=== PATIENT | female | born 1995 | race Caucasian/White ===

== ENCOUNTER 2016-06-21 13:50 | Emergency (ER) | payer OTHER ==
[2016-06-21] MEDS ORDERED: SODIUM CHLORIDE 0.9% 1,000 ML IV STA ×2 (15:05→15:06)
[2016-06-21] MEDS ORDERED: METOCLOPRAMIDE 5 MG/ML 2 ML VIAL IVP STA (15:06)
--- NOTE | 2016-06-21 15:10 | ED ---
General Adult HPI - General Chief complaint: Nausea/Vomiting/Diarrhea Stated complaint: Vomiting/ 20 weeks Time Seen by Provider: 06/21/16 14:45 Source: patient Mode of arrival: wheelchair Limitations: no limitations - History of Present Illness Initial comments: Patient is a 21-year-old female at 20 weeks presenting with nausea/ vomiting for the past 24 hours. Patient states she vomited 5-6 times today. Nonbloody. Patient denies taking any antiemetics. Patient denies any suspicious food, family members are sick or travel. 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 Patient followed up with labor and delivery who assessed the baby and said that the baby was okay. Patient was deferred to the emergency room for further management care. Patient admits to cramping as well as back pain for which was assessed by labor and delivery. - Related Data Home Medications Medication Instructions Recorded Confirmed Pnv with Ca,No.72/Iron/FA 1 tab PO DAILY 06/21/16 06/21/16 [ Plus Tablet] Allergies Allergy/AdvReac Type Severity Reaction Status Date / Time seafood AdvReac Unknown Uncoded 06/21/16 14:09 Review of Systems ROS Statement: Those systems with pertinent positive or pertinent negative responses have been documented in the HPI. Constitutional: No fever and no chills. HENT: No congestion, no rhinorrhea and no sore throat. Eyes: No discharge and no redness. Respiratory: No cough and no shortness of breath. Cardiovascular: No chest pain and no palpitations. Gastrointestinal: +nausea, +vomiting, +abdominal pain and no diarrhea. Genitourinary: No dysuria and no hematuria. Musculoskeletal: +back pain and no arthralgias. Skin: No pallor and no rash. Neurological: No dizziness and No headaches. ROS Other: All systems not noted in ROS Statement are negative. 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 No distress. Head: Normocephalic and atraumatic. Eyes: Conjunctivae and EOM are normal. Right eye exhibits no discharge. Left eye exhibits no discharge. No scleral icterus. Neck: Normal range of motion. Neck supple. Cardiovascular: Normal rate and regular rhythm. No murmur heard. Pulmonary/Chest: Effort normal and breath sounds normal. No respiratory distress. No wheezes. Abdominal: uterus to the umbilicus. Soft. Mild diffuse tenderness throughout. There is no rebound and no guarding. Musculoskeletal: Normal range of motion. No edema or tenderness. Neurological: Patient alert and oriented to person, place, and time. Skin: Skin is warm and dry. Not diaphoretic. Nursing notes and vitals reviewed. Limitations: no limitations Course Vital Signs 06/21/16 06/21/16 06/21/16 14:06 16:59 18:00 Temperature 97.4 F L Pulse Rate 83 90 87 Respiratory 16 18 18 Rate Blood Pressure 115/56 128/57 117/62 O2 Sat by Pulse 98 98 100 Oximetry - Reevaluation(s) Reevaluation #1: 06/21/16 18:35 Patient doing better on reevaluation no further nausea vomiting. Patient tolerated oral challenge. Medical Decision Making - Medical Decision Making Patient's 21-year-old at 20 weeks presenting with nausea vomiting. Patient was given 2 L normal saline as well as Reglan which improved his symptoms. Patient's blood work is unremarkable except for magnesium 1.5 which was replaced orally. Discussed care with DIMPLING MACHINE OPERATOR who agrees that patient was assessed on labor and delivery and can be discharged from their standpoint as well.Prior to discharge, patient was resting comfortably in bed. Course of stay improved. Denies pain. Discussed physical exam and diagnostic tests with patient. Questions answered and patient is agreeable to discharge with close follow up with Primary Care Physician. Instructed to return to Emergency Department if symptoms worsen. - Lab Data Result diagrams: 06/21/16 15:52 06/21/16 15:52 Lab Results 06/21/16 06/21/16 06/21/16 Range/Units 15:52 15:52 16:44 WBC 15.6 H (3.8-10.6) k/uL RBC 4.11 (3.80-5.40) m/uL Hgb 12.0 (11.4-16.0) gm/dL Hct 36.7 (34.0-46.0) % MCV 89.4 (80.0-100.0) fL MCH 29.2 (25.0-35.0) pg MCHC 32.7 (31.0-37.0) g/dL RDW 13.7 (11.5-15.5) % Plt Count 229 (150-450) k/uL Neutrophils % 94 % Lymphocytes % 3 % Monocytes % 3 % Eosinophils % 0 % Basophils % 0 % Neutrophils # 14.7 H (1.3-7.7) k/uL Lymphocytes # 0.4 L (1.0-4.8) k/uL Monocytes # 0.4 (0-1.0) k/uL Eosinophils # 0.0 (0-0.7) k/uL Basophils # 0.0 (0-0.2) k/uL Sodium 135 L (137-145) mmol/L Potassium 3.7 (3.5-5.1) mmol/L Chloride 104 (98-107) mmol/L Carbon Dioxide 21 L (22-30) mmol/L Anion Gap 10 mmol/L BUN 11 (7-17) mg/dL Creatinine 0.40 L (0.52-1.04) mg/dL Est GFR (MDRD) Af Amer >60 (>60 ml/min/1.73 sqM) Est GFR (MDRD) Non-Af >60 (>60 ml/min/1.73 sqM) Glucose 62 L (74-99) mg/dL Calcium 9.1 (8.4-10.2) mg/dL Magnesium 1.5 L (1.6-2.3) mg/dL Total Bilirubin 1.1 (0.2-1.3) mg/dL AST 17 (14-36) U/L ALT 27 (9-52) U/L Lipase 34 (23-300) U/L HCG, Quant 62844.2 mIU/mL Urine Color Yellow Urine Appearance Cloudy H (Clear) Urine pH 6.0 (5.0-8.0) Ur Specific [place] 1.018 (1.001-1.035) Urine Protein Trace H (Negative) Urine Glucose (UA) Negative (Negative) Urine Ketones 4+ H (Negative) Urine Blood Moderate H (Negative) Urine Nitrate Negative (Negative) Urine Bilirubin Negative (Negative) Urine Urobilinogen <2.0 (<2.0) mg/dL Ur Leukocyte Esterase Moderate H (Negative) Urine RBC 18 H (0-5) /hpf Urine WBC 7 H (0-5) /hpf Ur Squamous Epith Cells 21 H (0-4) /hpf Urine Bacteria Rare H (None) /hpf Urine Mucus Few H (None) /hpf Disposition Clinical Impression: Nausea & vomiting, Disposition: HOME SELF-CARE Condition: Good Instructions: Acute Nausea and Vomiting (ED) Referrals: None,Stated [Primary Care Provider] - 1-2 days Dina Beth DO [Doctor of Osteopathic Medicine] - 1-2 days
[2016-06-21 16:28] LABS: Basophils % (A) 0 %; CH 29.7; CHCM 33.4; Eosinophils % (A) 0 %; HCT 36.7 % (34.0-46.0); HDW 2.21; Luc # (Auto) 0.07; Luc % (Auto) 0; Lymphocytes # (A) 0.4 k/uL (1.0-4.8); Lymphocytes % (A) 3 %; MCH 29.2 pg (25.0-35.0); MCHC 32.7 g/dL (31.0-37.0); MCV 89.4 fL (80.0-100.0); Mean Platelet Volume 7.8; Monocytes # (A) 0.4 k/uL (0-1.0); Monocytes % (A) 3 %; Neutrophils # (A) 14.7 k/uL (1.3-7.7); Neutrophils % (A) 94 %; RBC 4.11 m/uL (3.80-5.40); RDW 13.7 % (11.5-15.5); WBC 15.6 k/uL (3.8-10.6); WBC (Perox) 15.49
[2016-06-21 16:41] LABS: ALT 27 U/L (9-52); AST 17 U/L (14-36); Anion Gap 10 mmol/L; Blood Urea Nitrogen 11 mg/dL (7-17); Calcium 9.1 mg/dL (8.4-10.2); Carbon Dioxide 21 mmol/L (22-30); Chloride 104 mmol/L (98-107); Glucose 62 mg/dL (74-99); Magnesium 1.5 mg/dL (1.6-2.3); Non-African American GFR(MDRD) >60 (>60 ml/min/1.73 sqM); Potassium 3.7 mmol/L (3.5-5.1); Sodium 135 mmol/L (137-145); Total Bilirubin 1.1 mg/dL (0.2-1.3)
[2016-06-21 16:56] LABS: HCG,Quantitative Serum 10429.2 mIU/mL
[2016-06-21 16:58] LABS: Appearance,Urine Cloudy (Clear); Bacteria,Urine Rare /hpf; Bilirubin,Urine Negative (Negative); Glucose,Urine (UA) Negative (Negative); Ketones,Urine 4+ (Negative); Leukocyte Esterase,Urine Moderate (Negative); Mucus,Urine Few /hpf; Nitrite,Urine Negative (Negative); Particle Count 11725; Protein,Urine Trace (Negative); RBC,Urine 18 /hpf (0-5); Specific Gravity,Urine 1.018 (1.001-1.035); Squamous Epithelial Cell,Urine 21 /hpf (0-4); UA Billing (MACRO vs. MICRO) MICRO; Urobilinogen,Urine <2.0 mg/dL (<2.0); WBC,Urine 7 /hpf (0-5)
[2016-06-21 17:00] VITALS: RESP 18
[2016-06-21] MEDS ORDERED: MAGNESIUM OXIDE 400 MG TAB PO STA (17:42)
[2016-06-21 18:43] VITALS: BP 115/58; PULSE 80; TEMP 98.4
== END 2016-06-21 18:43 | disposition home or self-care (01) ==
LOC: EC 13:50
DX: O21.0 Mild hyperemesis gravidarum (principal); Z3A.20 20 weeks gestation of pregnancy; Z91.013 Allergy to seafood
CPT/HCPCS: 36415; 80048; 82247; 83690; 83735; 84450; 84460; 85025; 81001; 84702; 87086; 96374; 96361; 99284; J2765; 99213

== ENCOUNTER → 2016-08-21 | Outpatient (CLI) | payer OTHER ==
[2016-08-21 11:45] LABS: CH 29.2; CHCM 32.2; HCT 33.7 % (34.0-46.0); HDW 2.38; HGB 10.9 gm/dL (11.4-16.0); MCH 29.5 pg (25.0-35.0); MCHC 32.5 g/dL (31.0-37.0); MCV 90.9 fL (80.0-100.0); Mean Platelet Volume 7.8; RBC 3.71 m/uL (3.80-5.40); RDW 13.6 % (11.5-15.5); WBC 14.2 k/uL (3.8-10.6)
== END | disposition home or self-care (01) ==
LOC: LABWHC1 09:19
PROVIDERS: ATTEND Obstetrics & Gynecology
DX: Z34.02 Encounter for supervision of normal first pregnancy, second trimester (principal)
CPT/HCPCS: 36415; 82950; 85027

== ENCOUNTER 2016-10-22 19:49 | Outpatient (CLI) | payer OTHER ==
[2016-10-22 20:03] VITALS: BP 124/65; PULSE 90; RESP 16; TEMP 97.1
--- NOTE | 2016-10-22 21:32 | P.MSEPDOC ---
Presenting Problems - Arrival Data Date of Arrival on Unit: 10/22/16 Time of Arrival on Unit: 19:49 Mode of Transport: Wheelchair - Complaint OB-Reason for Admission/Chief Complaint: Rule Out SROM Comment: Patient reports possible leaking, states she thinks she lost her mucus yesterday so she is having some "watery discharge" Medical History - Information : 1 Para: 0 Term: 0 : 0 Abortions: Spontaneous or Elective: 0 Number of Living Children: 0 - Gestational Age Expected Date of Delivery: 11/06/16 Gestational Age by LIAM (wks/days): 37 Weeks and 6 Days Review of Systems - Review of Systems Constitutional: No problems Breast: No problems ENT: No problems Cardiovascular: No problems Respiratory: No problems Gastrointestinal: No problems Genitourinary: No problems Musculoskeletal: No problems Neurological: No problems Skin: No problems Vital Signs - Temperature Temperature: 97.1 F Temperature Source: Temporal Artery Scan - Pulse Pulse Oximetery Pulse Rate: 90 Pulse Assessment Method: Pulse Oximetry - Respirations Respiratory Rate: 16 Oxygen Delivery Method: Room Air - Blood Pressure Sitting Blood Pressure: 124/65 Blood Pressure Mean: 84 Blood Pressure Source: Automatic Cuff Medical Screen Scoring (Pre) - Cervical Exam Dilation: 1-3 cm = 1 - Maternal Vital Signs Maternal Temperature: N/A Maternal Blood Pressure: N/A Signs of Preeclampsia: N/A Maternal Respirations: N/A - Maternal Trauma Maternal Trauma: N/A - Assessment Heart Rate - NICHD Category: Category I (Normal) = 0 NST: Reactive Position: N/A Station: N/A - Total Score Total Score (Pre): 1 Medical Screen Scoring (Post) - Cervical Exam Dilation: 1-3 cm = 1 Effacement: More than 50% = 2 Membranes: Intact - Uterine Contractions Frequency: N/A - Assessment Heart Rate: 135 Heart Rate - NICHD Category: Category I (Normal) = 0 - Total Score Total Score (Post): 3 - Post Treatment Level of Risk Post Treatment Level of Risk: Low (0-5) Physician Notification (Post) - Physician Notified Physician Notified Date: 10/22/16 Physician Notified Time: 20:48 New Order Received: Yes Disposition - Disposition OB Disposition: Discharge to home Discharge Date: 10/22/16 Discharge Time: 20:54 I agree with the RN Medical Screening Exam: Yes Risk & Benefit of care provided described in d/c instruction: Yes Diagnosis: FALSE LABOR AT OR AFTER 37 COMPLETED WEEKS OF GESTATION
== END 2016-10-22 20:54 | disposition home or self-care (01) ==
LOC: FBPOP 19:49
PROVIDERS: ATTEND Obstetrics & Gynecology
DX: O47.1 False labor at or after 37 completed weeks of gestation (principal)
CPT/HCPCS: 59025; 84112; G0463; 99213

== ENCOUNTER 2016-10-24 20:19 | Outpatient (CLI) | payer OTHER ==
[2016-10-24 20:57] VITALS: BP 117/57; PULSE 91; RESP 18; TEMP 97.3
--- NOTE | 2016-10-25 08:29 | P.MSEPDOC ---
Presenting Problems - Arrival Data Date of Arrival on Unit: 10/24/16 Time of Arrival on Unit: 20:19 Mode of Transport: Wheelchair - Complaint OB-Reason for Admission/Chief Complaint: Possible Onset of Labor Medical History - Information : 1 Para: 0 Term: 0 : 0 Abortions: Spontaneous or Elective: 0 Number of Living Children: 0 - Gestational Age Expected Date of Delivery: 11/06/16 Gestational Age by LIAM (wks/days): 38 Weeks and 2 Days - History Complications: GBS+ Review of Systems - Review of Systems Constitutional: No problems Breast: No problems ENT: No problems Cardiovascular: No problems Respiratory: No problems Gastrointestinal: No problems Genitourinary: No problems Musculoskeletal: No problems Neurological: No problems Skin: No problems Vital Signs - Temperature Temperature: 97.3 F Temperature Source: Temporal Artery Scan - Pulse Right Pulse Rate: 91 Pulse Assessment Method: Pulse Oximetry - Respirations Respiratory Rate: 18 Oxygen Delivery Method: Room Air O2 Sat by Pulse Oximetry: 98 - Blood Pressure Right Arm Blood Pressure: 117/57 Blood Pressure Mean: 77 Blood Pressure Source: Automatic Cuff Medical Screen Scoring (Pre) - Cervical Exam Dilation: 1-3 cm = 1 Effacement: More than 50% = 2 Membranes: Intact - Uterine Contractions Frequency: > or = 36 weeks =2 Duration: > 40 seconds = 2 Intensity: N/A - Maternal Vital Signs Maternal Temperature: N/A Maternal Blood Pressure: N/A Signs of Preeclampsia: N/A Maternal Respirations: N/A - Maternal Trauma Maternal Trauma: N/A - Assessment Baseline FHR: 145 Heart Rate - NICHD Category: Category I (Normal) = 0 NST: Reactive Position: N/A Station: N/A - Total Score Total Score (Pre): 7 - Level of Risk Level of Risk: Medium (6-9) Medical Screen Scoring (Post) - Cervical Exam Dilation: 1-3 cm = 1 Effacement: More than 50% = 2 Membranes: Intact - Uterine Contractions Frequency: > or = 36 weeks =2 Duration: > 40 seconds = 2 - Maternal Vital Signs Maternal Temperature: N/A Signs of Preeclampsia: N/A Maternal Respirations: N/A - Maternal Trauma Maternal Trauma: N/A - Assessment Heart Rate - NICHD Category: Category I (Normal) = 0 NST: Reactive - Total Score Total Score (Post): 7 - Post Treatment Level of Risk Post Treatment Level of Risk: Medium (6-9) Physician Notification (Post) - Physician Notified Physician Notified Date: 10/24/16 Physician Notified Time: 22:02 Physician/Practitioner Notified:: Dr Moss Spoke With: Dr Moss New Order Received: Yes (discharge) Disposition - Disposition OB Disposition: Discharge to home, Written follow up instructions reviewed Discharge Date: 10/24/16 Discharge Time: 22:10 I agree with the RN Medical Screening Exam: Yes Risk & Benefit of care provided described in d/c instruction: Yes Diagnosis: FALSE LABOR AT OR AFTER 37 COMPLETED WEEKS OF GESTATION
== END 2016-10-24 22:10 | disposition home or self-care (01) ==
LOC: FBPOP 20:19
PROVIDERS: ATTEND Obstetrics & Gynecology
DX: O47.1 False labor at or after 37 completed weeks of gestation (principal); Z3A.38 38 weeks gestation of pregnancy
CPT/HCPCS: 59025; G0463; 99213

== ENCOUNTER 2016-10-25 04:42 | Inpatient (IN) | payer OTHER ==
[2016-10-25] MEDS ORDERED: LIDOCAINE 1% (PF) 10 MG/ML (30 ML SDV) SQ PRN (08:11)
[2016-10-25] MEDS ORDERED: OXYTOCIN 10 UNIT/ML 1 ML VIAL IM PRN (08:11)
[2016-10-25] MEDS ORDERED: TERBUTALINE 1 MG/ML VIAL SQ PRN (08:11)
[2016-10-25] MEDS ORDERED: CARBOPROST TROMETHAMINE 250 MCG/ML 1 ML AMP IM PRN (08:11)
[2016-10-25] MEDS ORDERED: AMPICILLIN 2,000 MG in SODIUM CHLORIDE 0.9% 100 ML IVPB STA (08:11)
[2016-10-25] MEDS ORDERED: METHYLERGONOVINE 0.2 MG/ML 1 ML AMP IM PRN (08:11)
[2016-10-25] MEDS ORDERED: BUTORPHANOL 1 MG/ML 1 ML VIAL IV PRN (08:13)
[2016-10-25] MEDS: LACTATED RINGERS 1,000 ML IV SCH ×2 (08:25→10:44)
[2016-10-25 08:37] LABS: Basophils % (A) 0 %; CH 28.5; CHCM 32.7; Eosinophils % (A) 0 %; HCT 35.2 % (34.0-46.0); HDW 2.51; HGB 11.7 gm/dL (11.4-16.0); Luc # (Auto) 0.22; Luc % (Auto) 1; Lymphocytes # (A) 1.5 k/uL (1.0-4.8); Lymphocytes % (A) 8 %; MCH 29.1 pg (25.0-35.0); MCHC 33.2 g/dL (31.0-37.0); MCV 87.6 fL (80.0-100.0); Mean Platelet Volume 9.1; Monocytes # (A) 0.7 k/uL (0-1.0); Monocytes % (A) 4 %; Neutrophils # (A) 16.7 k/uL (1.3-7.7); Neutrophils % (A) 87 %; RBC 4.02 m/uL (3.80-5.40); RDW 14.5 % (11.5-15.5); WBC 19.2 k/uL (3.8-10.6); WBC (Perox) 19.89
[2016-10-25 09:00] VITALS: BMI 27.3
[2016-10-25] MEDS: AMPICILLIN 1,000 MG in SODIUM CHLORIDE 0.9% 50 ML IVPB SCH (12:56)
[2016-10-25] MEDS ORDERED: BENZOCAINE SPRAY 57GM TOPICAL PRN (16:27)
[2016-10-25] MEDS ORDERED: ACETAMINOPHEN TAB 325 MG TAB PO PRN (16:27)
[2016-10-25] MEDS ORDERED: LANOLIN CREAM 5 GM TUBE TOPICAL PRN (16:27)
[2016-10-25] MEDS ORDERED: diphenhydrAMINE 50 MG CAP PO PRN (16:27)
[2016-10-25] MEDS ORDERED: HYDROCORTISONE 2.5% RECTAL CREAM 30 GM TUBE RECTAL PRN (16:27)
[2016-10-25] MEDS ORDERED: Acetaminophen-Codeine 300-30mg TAB PO PRN (16:27)
[2016-10-25] MEDS ORDERED: WITCH HAZEL 1 EACH MED..PAD TOPICAL PRN (16:27)
[2016-10-25] MEDS ORDERED: diphenhydrAMINE 25 MG CAP PO PRN (16:27)
[2016-10-25] MEDS ORDERED: IBUPROFEN 600 MG TAB PO PRN (16:27)
[2016-10-25] MEDS ORDERED: SIMETHICONE 80 MG CHEWABLE PO PRN (16:27)
[2016-10-25] MEDS ORDERED: ZOLPIDEM 5 MG TAB PO PRN (16:27)
[2016-10-25] MEDS ORDERED: OXYTOCIN 20 UNITS/1000 ML NS 1,000 ML IV SCH (16:30)
--- NOTE | 2016-10-25 16:48 | P.HPOB ---
History of Present Illness H&P Date: 10/25/16 Chief Complaint: labor 21 year old presents at 38 weeks and 2 days in labor. Her cervix changed in triage from 3 cm dilated to 4 cm dilated, 80% effaced, -2 station. She is vick every 4-5 minutes. heart tones are 140-145 with moderate variability and reactive. Review of Systems All systems: negative Constitutional: Denies chills, Denies fever Eyes: denies blurred vision, denies pain Ears, nose, mouth and throat: Denies headache, Denies sore throat Cardiovascular: Denies chest pain, Denies shortness of breath Respiratory: Denies cough Gastrointestinal: Denies abdominal pain, Denies diarrhea, Denies nausea, Denies vomiting Genitourinary: Denies dysuria, Denies hematuria Musculoskeletal: Denies myalgias Integumentary: Denies pruritus, Denies rash Neurological: Denies numbness, Denies weakness Psychiatric: Denies anxiety, Denies depression Endocrine: Denies fatigue, Denies weight change Past Medical History Additional Past Medical History / Comment(s): neuro cardiogenic syncope. Obstetric history: This patient's first and she's had care with me since first trimester. Blood type is O+, antibodies negative, rubella immune, hepatitis B negative, GBS positive, HIV nonreactive, RPR nonreactive. History of Any Multi-Drug Resistant Organisms: None Reported Past Surgical History: No Surgical Hx Reported Past Psychological History: No Psychological Hx Reported Smoking Status: Never smoker Past Alcohol Use History: None Reported Past Drug Use History: None Reported - Past Family History Mother Family Medical History: No Reported History Medications and Allergies Home Medications Medication Instructions Recorded Confirmed Type Pnv,Calcium 72/Iron/Folic Acid 1 tab PO DAILY 06/21/16 10/25/16 History [ Plus Tablet] Albuterol Sulfate [Ventolin HFA] 1 - 2 puff INHALATION Q6H PRN 10/24/16 History Allergies Allergy/AdvReac Type Severity Reaction Status Date / Time seafood Allergy Unknown Uncoded 10/25/16 04:45 Exam Osteopathic Statement: *. No significant issues noted on an osteopathic structural exam other than those noted in the History and Physical/Consult. - Vital Signs Vital signs: Vital Signs Temp Pulse Resp BP Pulse Ox 10/25/16 15:45 101.6 F H 122 H 16 133/59 10/25/16 08:11 97.2 F L 68 16 120/72 10/25/16 04:45 97.6 F 78 16 127/65 98 Intake and Output 10/25/16 10/25/16 10/25/16 06:59 14:59 22:59 Other: # Voids 1 Weight 65.771 kg 65.771 kg Patient Weight 10/26/16 06:59 Weight 65.771 kg Heart: Regular rate and rhythm Lungs: Clear to auscultation bilaterally Abdomen: Soft, nontender Extremities: Negative Homans sign Results Result Diagrams: 10/25/16 08:10 Abnormal Lab Results - Last 24 Hours (Table) 10/25/16 Range/Units 08:10 WBC 19.2 H (3.8-10.6) k/uL Neutrophils # 16.7 H (1.3-7.7) k/uL Assessment and Plan (1) Normal labor Status: Acute Plan: 1. Admit to labor and delivery 2. Expectant management 3. Anticipate normal vaginal delivery
--- NOTE | 2016-10-25 16:55 | P.PROBDLV ---
Vaginal Delivery Note - . Vaginal Delivery Note: 21-year-old presents at 38 weeks and 2 days in labor. Her cervix changed in triage from 3 cm to 4 cm, 80% effaced, -2 station. heart tones 140- 145 with moderate variability and reactive. Amniotomy was performed at 9:30 AM and clear fluid noted. She did have a dose of antibiotics and by that time. When she was 5 cm due to get an epidural and was comfortable. She progressed to complete at 1500, pushed, delivered a viable female infant over Episiotomy under epidural anesthesia at 1537. Head delivered OA, nuchal cord 1 easily reduced, anterior shoulder delivered gentle downward traction followed by posterior shoulder and rest of body. Nose and mouth bulb suctioned, cord clamped and cut, placed on mother's abdomen. Apgars 9, 9, weight 6 lbs. 4 oz. Placenta delivered spontaneously, intact with three-vessel cord at 1540. Vagina, cervix, and perineum were inspected. Secondary midline episiotomy was repaired with 2-0, and 3-0 Vicryl. Estimated blood loss 200 mL. Mother and baby in stable condition.
[2016-10-25] MEDS: SENNOSIDES-DOCUSATE SODIUM 1 EACH TAB PO SCH (23:36)
[2016-10-26] MEDS: AMPICILLIN 1,000 MG in SODIUM CHLORIDE 0.9% 50 ML IVPB SCH (02:06)
[2016-10-26] MEDS: Acetaminophen-Codeine 300-30mg TAB PO PRN ×2 (04:58→11:15)
--- NOTE | 2016-10-26 06:33 | P.DS ---
Providers Date of admission: 10/25/16 07:58 Expected date of discharge: 10/26/16 Attending physician: Dina Beth Primary care physician: Stated None - Discharge Diagnosis(es) (1) Normal labor Current Visit: Yes Status: Resolved (2) Normal vaginal delivery Current Visit: Yes Status: Acute Hospital Course: Patient presented in active labor. She underwent a normal vaginal delivery. Her course was uncomplicated. She'll be discharged home day #1 in stable condition to follow-up with me in 6 weeks. Plan - Discharge Summary New Discharge Prescriptions: Acetaminophen-Codeine 300-30mg [Tylenol w/codeine #3] 2 each PO Q6H PRN #30 tab PRN Reason: Moderate To Severe Pain Ibuprofen [Motrin] 600 mg PO Q6HR PRN #30 tab PRN Reason: Mild Pain Or Fever >= 100.5 Discharge Medication List Pnv,Calcium 72/Iron/Folic Acid [ Plus Tablet] 1 tab PO DAILY 06/21/16 [ History] Albuterol Sulfate [Ventolin HFA] 1 - 2 puff INHALATION Q6H PRN 10/24/16 [History ] Acetaminophen-Codeine 300-30mg [Tylenol w/codeine #3] 2 each PO Q6H PRN #30 tab 10/26/16 [Rx] Ibuprofen [Motrin] 600 mg PO Q6HR PRN #30 tab 10/26/16 [Rx] Follow up Appointment(s)/Referral(s): Dina Beth DO [Doctor of Osteopathic Medicine] - 6 Weeks
[2016-10-26] MEDS: SENNOSIDES-DOCUSATE SODIUM 1 EACH TAB PO SCH (09:35)
[2016-10-26] MEDS ORDERED: SODIUM CHLORIDE 0.9% 100 ML BAG ONE (10:49)
[2016-10-26] MEDS ORDERED: BUPIVACAINE (PF) 0.25% 30 ML VIAL ONE (10:49)
[2016-10-26] MEDS ORDERED: fentaNYL (PF) 50 MCG/ML 5 ML AMP ONE (10:49)
[2016-10-26 11:35] VITALS: BP 113/68; PULSE 116; RESP 48; TEMP 97.5
== END 2016-10-26 17:15 | disposition home or self-care (01) | DRG 775 ==
LOC: FBPOP 04:42 → 4FBP 07:58
PROVIDERS: ADMIT Obstetrics & Gynecology; ATTEND Obstetrics & Gynecology
PROC: 10E0XZZ Delivery of Products of Conception, External Approach (ICD-10-PCS; principal; 2016-10-25)
PROC: 10907ZC Drainage of Amniotic Fluid, Therapeutic from Products of Conception, Via Natural or Artificial Opening (ICD-10-PCS; 2016-10-25)
PROC: 0W8NXZZ Division of Female Perineum, External Approach (ICD-10-PCS; 2016-10-25)
PROC: 3E0S3NZ Introduction of Analgesics, Hypnotics, Sedatives into Epidural Space, Percutaneous Approach (ICD-10-PCS; 2016-10-25)
DX: O99.824 Streptococcus B carrier state complicating childbirth (principal); O69.81X0 Labor and delivery complicated by cord around neck, without compression, not applicable or unspecified; Z3A.38 38 weeks gestation of pregnancy; Z37.0 Single live birth; Z91.013 Allergy to seafood; Z86.79 Personal history of other diseases of the circulatory system
CPT/HCPCS: 59025; 85025; 88307; 99213

== ENCOUNTER → 2018-01-02 | Outpatient (CLI) | payer OTHER ==
[2018-01-02 09:30] VITALS: BP 96/63; PULSE 75; TEMP 97.6; BMI 23.0
--- NOTE | 2018-01-02 10:30 | P.GSHP ---
History of Present Illness H&P Date: 01/02/18 Patient is a 22 year old black female with a complaint of right breast swelling in 2014. At that time she was noted to have dense breast and an ultrasound was done which was benign. She was told this was hormonal. She that got and the fullness in her breast became more apparent however her child is now 14 months old and the breast continue to be fall. She did not breast feed. She is at this time having discharge from the right nipple. No discharge from the left nipple. The discharge is clear in nature, spontaneous, and she notices it more in the evening. She notices this more when she does not wear bra and has no support for her breast. Her breasts are heavy bilaterally and tender to palpation bilaterally. The patient had recent cultures obtained from the breast which revealed normal carol. She additionally had a prolactin level drawn which was 27.11 which is high normal. Her periods are irregular. Her breasts are always tender and do not seem to be related to her menstrual cycle The patient drinks coffee in the am, no pop. No chololate. No smoking, no second hand smoke. Family history: Negative Menarche: 13 Pregnancies: 1, 1 live at 21, breast fed negative control pills: implant in her arm: This was present when she had a swollen right breast, patient had a Depo shot hormones: Negative Social history: Smoking: Negative Alcohol: Negative Drugs: Negative Past surgical history: Negative Past medical history: 1. Neurogenic syncope - Constitutional Constitutional: Denies chills, Denies fever - EENT Eyes: denies blurred vision, denies pain Ears: deny: decreased hearing, tinnitus Ears, nose, mouth and throat: Denies headache, Denies sore throat - Breasts Breasts: bilateral: as per HPI - Cardiovascular Comment: Neurogenic syncope - Respiratory Respiratory: Denies cough, Denies 7 - Gastrointestinal Gastrointestinal: Denies abdominal pain, Denies diarrhea, Denies nausea, Denies vomiting - Genitourinary (Female) Comment: Irregular periods - Menstruation Menstruation: Reports as per HPI - Musculoskeletal Musculoskeletal: Denies myalgias - Integumentary Integumentary: Denies pruritus, Denies rash - Neurological Comment: Neurogenic syncope - Psychiatric Psychiatric: Denies anxiety, Denies depression - Endocrine Endocrine: Denies fatigue, Denies weight change - Hematologic/Lymphatic Comment: none - Allergic/Immunologic Comment: sea food Allergic/Immunologic: Reports seasonal allergies Past Medical History Additional Past Medical History / Comment(s): neuro cardiogenic syncope. Obstetric history: This patient's first and she's had care with me since first trimester. Blood type is O+, antibodies negative, rubella immune, hepatitis B negative, GBS positive, HIV nonreactive, RPR nonreactive. History of Any Multi-Drug Resistant Organisms: None Reported Past Surgical History: No Surgical Hx Reported Past Psychological History: No Psychological Hx Reported Smoking Status: Never smoker Past Alcohol Use History: None Reported Past Drug Use History: None Reported - Past Family History Mother Family Medical History: No Reported History Medications and Allergies Allergies Allergy/AdvReac Type Severity Reaction Status Date / Time seafood Allergy Unknown Uncoded 01/02/18 09:25 Surgical - Exam Vital Signs Temp Pulse BP Pulse Ox 97.6 F 75 96/63 98 01/02/18 09:25 01/02/18 09:25 01/02/18 09:25 01/02/18 09:25 - General well developed, well nourished, no distress - Eyes normal ocular movement, no icteric - ENT no hearing loss, no congestion - Neck no masses, trachea midline - Respiratory normal respiratory effort, clear to auscultation - Cardiovascular Rhythm: regular Heart Sounds: normal: S1, S2 - Abdomen Abdomen: soft, non tender, no guarding, no rigid, no rebound - Neurologic no disoriented, no combative - Musculoskeletal normal gait, normal posture - Psychiatric oriented to time, oriented to person, oriented to place, speech is normal, memory intact Breast examination: Right breast: Multi-positional exam no dominant masses or nodules of concern, however with examination there is milk present from multiple ducts and the nipple Right axilla: No adenopathy of concern Left breast: Multiple positional exam no dominant masses or nodules of concern, with multiple positional examination there is milk present from multiple ducts in the nipple Left axilla: No adenopathy of concern Results Cultures and prolactin level reviewed Assessment and Plan Assessment: Impression/plan: 1. Bilateral breast pain with bilateral persistent galactorrhea 2. Upper limits of normal prolactin level 3. neurogenic syncope Plan: 1. ultrasound bilateral 2. Appointment with endocrinology regarding possible elevation of prolactin resulting in persistent galactorrhea 3. Medical management of neurogenic syncope 4. Follow-up after ultrasound an appointment with endocrinology dealing with anything CC: Dr. Dave, Dr. Parikh
== END ==
LOC: WWCWWP 09:15
PROVIDERS: ATTEND Surgery
DX: Z53.9 Procedure and treatment not carried out, unspecified reason (principal)

== ENCOUNTER → 2018-03-07 | Outpatient (CLI) | payer OTHER ==
--- NOTE | 2018-03-07 15:00 | USB ---
Reason for exam: clinical finding. Physical Findings: Nurse Summary: breast milk x 1 year, never breast fed, 16 month (nurse kp), US Breast BILAT Right complete breast ultrasound includes all four quadrants, the retroareolar region and axilla. Finding demonstrates duct ectasia at 6 o'clock. Left complete breast ultrasound includes all four quadrants, the retroareolar region and axilla. Finding demonstrates duct ectasia at 3 o'clock, moving internal echoes. These results were verbally communicated with the patient and result sheet given to the patient on 03/07/18. ASSESSMENT: Benign, BI-RAD 2 RECOMMENDATION: Routine screening mammogram of both breasts at age 40. Manage patient on a clinical basis.
== END ==
LOC: RADUSWWP 08:59
PROVIDERS: ATTEND Surgery
DX: N64.52 Nipple discharge (principal)

== ENCOUNTER → 2020-07-01 | Outpatient (CLI) | payer OTHER ==
[2020-07-01 16:21] VITALS: BP 112/71; PULSE 84; RESP 18; TEMP 98.4
--- NOTE | 2020-07-01 16:46 | P.GSHP ---
History of Present Illness H&P Date: 07/01/20 Chief Complaint: macromystia and back pain Yajaira is a 25 year old female seen for tender breast. She was seen by machine sprayer and was told she had an enlarged pituitary gland causing her to have fullness in her breast. At this time she has tender breast, and they are heavy. Her story starts in approximately 2014. At that time at the age of 22 she complained of swelling in her breast. She was told she had dense breast and ultrasound was done which was benign. She was told it was hormonal. She became in the fullness in her breast became more apparent her child now is 3-1/2 in her breast continue to feel full. She did not breast-feed. She has no nipple discharge for which she is concerned at this time. Her greatest concern now is bilateral breast tenderness which is greatest on the right side in the upper outer quadrant region. She can't tell if she has any lumps masses or nodules which are new because her breasts are so tender and dense. She has not had any recent breast imaging. She has a 32 DDD breast. She is complaining of back pain and neck pain. She develops shoulder notching. It is difficult for her to find close the fit appropriately. Caffeine: One cup of coffee per day Nicotine: Nicotine vapor Chocolate: Negative Family history: Negative Hormonal history: Menarche: 13 first child born at 21, breast fed: Negative control pills: Negative She did have a Doppler shot however the swelling in her breast got worse with this Hormones: Negative Surgical history: Negative Medical history: back pain macromastia Social history: Smoking: Gaping Alcohol: Negative Drugs: Negative - Constitutional Constitutional: Denies chills, Denies fever - EENT Eyes: denies blurred vision, denies pain Ears: deny: decreased hearing, tinnitus Ears, nose, mouth and throat: Denies headache, Denies sore throat - Breasts Breasts: bilateral: as per HPI - Cardiovascular Comment: neuro-cardio syncope; told to increase her sodium intake and elevate her feet - Respiratory Comment: vaping - Gastrointestinal Gastrointestinal: Denies abdominal pain, Denies diarrhea, Denies nausea, Denies vomiting - Genitourinary (Female) Genitourinary: Denies dysuria, Denies hematuria - Menstruation Menstruation: Reports period normal - Musculoskeletal Comment: back pain - Integumentary Integumentary: Denies pruritus, Denies rash - Neurological Neurological: Reports numbness - Psychiatric Psychiatric: Denies anxiety, Denies depression - Endocrine Endocrine: Reports fatigue - Hematologic/Lymphatic Comment: none - Allergic/Immunologic Allergic/Immunologic: Reports seasonal allergies Past Medical History Additional Past Medical History / Comment(s): neuro cardiogenic syncope. Obstetric history: This patient's first and she's had care with me since first trimester. Blood type is O+, antibodies negative, rubella immune, hepatitis B negative, GBS positive, HIV nonreactive, RPR nonreactive. History of Any Multi-Drug Resistant Organisms: None Reported Past Surgical History: No Surgical Hx Reported Past Psychological History: No Psychological Hx Reported Smoking Status: Vaper Past Alcohol Use History: None Reported Past Drug Use History: None Reported - Past Family History Mother Family Medical History: No Reported History Medications and Allergies Home Medications Medication Instructions Recorded Confirmed Type No Known Home Medications 07/01/20 07/01/20 History Allergies Allergy/AdvReac Type Severity Reaction Status Date / Time seafood Allergy Unknown Uncoded 07/01/20 16:17 Surgical - Exam Vital Signs Temp Pulse Resp BP Pulse Ox 98.4 F 84 18 112/71 99 07/01/20 16:18 07/01/20 16:18 07/01/20 16:18 07/01/20 16:18 07/01/20 16:18 BMI 20.1 - General well developed, no distress - Eyes normal ocular movement - ENT no hearing loss - Neck no masses, trachea midline - Respiratory normal expansion, normal respiratory effort, clear to auscultation - Cardiovascular Rhythm: regular Heart Sounds: normal: S1, S2 - Abdomen Abdomen: soft, bowel sounds - Integumentary normal turgor - Neurologic no disoriented, no combative - Musculoskeletal normal gait - Psychiatric oriented to time, oriented to person, oriented to place, speech is normal, memory intact breast exam: [id number] inspection: grade 3 ptosis bilateral Operation: Right breast: Multiple positional exam very dense breast no dominant masses or nodules of concern Right axilla: Shoddy adenopathy Left breast: Multi-positional exam dense breasts no dominant masses or nodules of concern Left axilla: Shoddy adenopathy Assessment and Plan Assessment: Impression: 1. Dense fibrocystic breast changes 2. Breast pain 3. Macromastia resulting in back pain and neck pain 3. vaping Plan: 1. bilateral breast ultrasound/mammogram 2. encourage to stop vaping 3. follow up after above done CC: Dr. Dave encounter 30 minutes time spent in reviewing medical records, physical exam, and counselling
== END | disposition home or self-care (01) ==
LOC: WWCWWP 15:45
PROVIDERS: ATTEND Surgery
DX: Z53.9 Procedure and treatment not carried out, unspecified reason (principal)

== ENCOUNTER → 2020-09-06 | Outpatient (CLI) | payer OTHER ==
--- NOTE | 2020-09-07 11:10 | MM ---
Reason for exam: clinical finding. Physical Findings: Nurse did not find any significant physical abnormalities on exam. MG Diagnostic Mammo w CAD ARIEL Bilateral CC and MLO view(s) were taken. The breast tissue is extremely dense which could obscure a lesion on mammography. Finding: There is a typically benign equal density (isodense), round mass in the right breast. No nodule is more suspicious than another. Patient scheduled for bilateral ultrasound. These results were verbally communicated with the patient and result sheet given to the patient on 09/06/20. ASSESSMENT: Benign, BI-RAD 2 RECOMMENDATION: Routine screening mammogram of both breasts at age 40.
--- NOTE | 2020-09-07 11:11 | USB ---
Reason for exam: clinical finding. US Breast BILAT Technologist: Lisa Reyes Right complete breast ultrasound includes all four quadrants, the retroareolar region and axilla. Finding demonstrates no cystic or solid lesion seen. Left complete breast ultrasound includes all four quadrants, the retroareolar region and axilla. Finding demonstrates no cystic or solid lesion seen. These results were verbally communicated with the patient and result sheet given to the patient on 09/06/20. ASSESSMENT: Negative, BI-RAD 1 RECOMMENDATION: Routine screening mammogram of both breasts at age 40. Manage patient on a clinical basis.
== END | disposition home or self-care (01) ==
LOC: RADMAMWWP 14:41
PROVIDERS: ATTEND Surgery
DX: R92.8 Other abnormal and inconclusive findings on diagnostic imaging of breast (principal)
CPT/HCPCS: 77066

== ENCOUNTER → 2020-09-16 | Outpatient (CLI) | payer OTHER ==
[2020-09-16 14:02] VITALS: BP 108/71; PULSE 72; RESP 16; TEMP 97.5
--- NOTE | 2020-09-16 14:28 | P.PN ---
Subjective Progress Note Date: 09/16/20 Principal diagnosis: macromastia and back pain Yajaira is a 25 year old female seen for tender breast. She was seen by gaming cage cashier and was told she had an enlarged pituitary gland causing her to have fullness in her breast. At this time she has tender breast, and they are heavy. Her story starts in approximately 2014. At that time at the age of 22 she complained of swelling in her breast. She was told she had dense breast and ultrasound was done which was benign. She was told it was hormonal. She became and the fullness in her breast became more apparent her child now is 3-1/2 in her breast continue to feel full. She did not breast- feed. She has no nipple discharge for which she is concerned at this time. Her greatest concern now is bilateral breast tenderness which is greatest on the right side in the upper outer quadrant region. She can't tell if she has any lumps masses or nodules which are new because her breasts are so tender and dense. She has a 32 DDD breast. She is complaining of back pain and neck pain. She develops shoulder notching. It is difficult for her to find clothes the fit appropriately. She had a bilateral mammogram performed on 4620. This was benign BIRADS 2. She also had a bilateral breast ultrasound performed on the same date and this was negative BIRADS 1. She does not complain of any new lumps masses or nodules in her breast for which she is aware at this time. Caffeine: One cup of coffee per day Nicotine: Nicotine vapor Chocolate: Negative Family history: Negative Hormonal history: Menarche: 13 first child born at 21, breast fed: Negative control pills: Negative She did have a Doppler shot however the swelling in her breast got worse with this Hormones: Negative Surgical history: Negative Medical history: back pain macromastia Social history: Smoking: Gaping Alcohol: Negative Drugs: Negative - Constitutional Constitutional: Denies chills, Denies fever - EENT Eyes: denies blurred vision, denies pain Ears: deny: decreased hearing, tinnitus Ears, nose, mouth and throat: Denies headache, Denies sore throat - Breasts Breasts: bilateral: as per HPI - Cardiovascular Comment: neuro-cardio syncope; told to increase her sodium intake and elevate her feet - Respiratory Comment: vaping - Gastrointestinal Gastrointestinal: Denies abdominal pain, Denies diarrhea, Denies nausea, Denies vomiting - Genitourinary (Female) Genitourinary: Denies dysuria, Denies hematuria - Menstruation Menstruation: Reports period normal - Musculoskeletal Comment: back pain - Integumentary Integumentary: Denies pruritus, Denies rash - Neurological Neurological: Reports numbness - Psychiatric Psychiatric: Denies anxiety, Denies depression - Endocrine Endocrine: Reports fatigue - Hematologic/Lymphatic Comment: none - Allergic/Immunologic Allergic/Immunologic: Reports seasonal allergies Past Medical History Additional Past Medical History / Comment(s): neuro cardiogenic syncope. Ob stetric history: This patient's first and she's had care with me since first trimester. Blood type is O+, antibodies negative, rubella immune, hepatitis B negative, GBS positive, HIV nonreactive, RPR nonreactive. History of Any Multi-Drug Resistant Organisms: None Reported Past Surgical History: No Surgical Hx Reported Past Psychological History: No Psychological Hx Reported Smoking Status: Vaper Past Alcohol Use History: None Reported Past Drug Use History: None Reported Objective - Vital Signs Vital signs: Vital Signs Temp 97.5 F L 09/16/20 13:59 Pulse 72 09/16/20 13:59 Resp 16 09/16/20 13:59 BP 108/71 09/16/20 13:59 Pulse Ox 98 09/16/20 13:59 Intake & Output 09/15/20 09/16/20 09/16/20 18:59 06:59 18:59 Weight 47.627 kg - Exam BMI 19.8 - Constitutional General appearance: Present: average body habitus - Additional findings Additional findings: patient declined beast exam at this time, as had a breast exam in June Assessment and Plan Assessment: Impression: 1. Bilateral macromastia with shoulder and neck pain 2. Recent mammogram and ultrasound bilateral 9 Plan: 1. Encouraged the patient to be seen by plastic surgery and consider breast reduction, there is nothing on her breast evaluation which would prohibit breast reduction at this time CC: Dr. Dave
== END ==
LOC: WWCWWP 13:52
PROVIDERS: ATTEND Surgery
DX: N62 Hypertrophy of breast (principal); Z87.891 Personal history of nicotine dependence

== ENCOUNTER 2020-11-13 17:31 | Emergency (ER) | payer OTHER ==
[2020-11-13 18:17] LABS: Appearance,Urine Clear (Clear); Bilirubin,Urine Negative (Negative); Blood,Urine Moderate (Negative); Color,Urine Yellow; Glucose,Urine (UA) Negative (Negative); Hyaline Casts,Urine 1 /lpf (0-2); Ketones,Urine Negative (Negative); Leukocyte Esterase,Urine Negative (Negative); Mucus,Urine Few /hpf; Nitrite,Urine Negative (Negative); PH, Urine 6.5 (5.0-8.0); Protein,Urine Negative (Negative); RBC,Urine 22 /hpf (0-5); Squamous Epithelial Cell,Urine 3 /hpf (0-4); Urobilinogen,Urine <2.0 mg/dL (<2.0); WBC,Urine 1 /hpf (0-5)
[2020-11-13] MEDS ORDERED: KETOROLAC 15 MG/ML 1 ML VIAL IVP STA (18:24)
[2020-11-13 19:09] LABS: Basophils # (A) 0.1 k/uL (0-0.2); Basophils % (A) 1 %; Eosinophils # (A) 0.1 k/uL (0-0.7); Eosinophils % (A) 1 %; HCT 34.9 % (34.0-46.0); HGB 12.1 gm/dL (11.4-16.0); Lymphocytes # (A) 2.5 k/uL (1.0-4.8); Lymphocytes % (A) 22 %; MCH 30.3 pg (25.0-35.0); MCHC 34.5 g/dL (31.0-37.0); MCV 87.7 fL (80.0-100.0); Mean Platelet Volume 7.7; Monocytes # (A) 0.4 k/uL (0-1.0); Monocytes % (A) 4 %; Neutrophils # (A) 8.1 k/uL (1.3-7.7); Neutrophils % (A) 72 %; Platelet Count 223 k/uL (150-450); RBC 3.98 m/uL (3.80-5.40); RDW 14.2 % (11.5-15.5); WBC 11.4 k/uL (3.8-10.6)
[2020-11-13 19:14] LABS: ALT 16 U/L (4-34); AST 23 U/L (14-36); African American GFR (CKD) >90 (>60 ml/min/1.73 sqM); Alkaline Phosphatase 52 U/L (38-126); Anion Gap 7 mmol/L; Blood Urea Nitrogen 12 mg/dL (7-17); Calcium 9.4 mg/dL (8.4-10.2); Carbon Dioxide 23 mmol/L (22-30); Chloride 107 mmol/L (98-107); Glucose 98 mg/dL (74-99); Non-African American GFR(CKD) >90 (>60 ml/min/1.73 sqM); Potassium 3.6 mmol/L (3.5-5.1); Sodium 137 mmol/L (137-145); Total Bilirubin 1.7 mg/dL (0.2-1.3); Total Protein 6.6 g/dL (6.3-8.2)
--- NOTE | 2020-11-13 19:37 | ED ---
General Adult HPI - General Chief complaint: Urogenital Stated complaint: lower back pain Time Seen by Provider: 11/13/20 18:01 Source: patient Mode of arrival: ambulatory Limitations: no limitations - History of Present Illness Initial comments: This is a 25-year-old female with a history of multiple UTIs in the past presents emergency department for lower back pain. She states that the symptoms started about a week ago however over the last 24 hours they seem to worsen. She states that she has some associated tingling in her legs all over the place. She denies any weakness though. No bowel or bladder incontinence. No saddle anesthesia. She states that she has a history of multiple urinary tract infections and does have a little bit of urinary frequency and also some hematuria that she was concerned that she may have been developing another urinary infection. She denies any fevers or chills. No nausea, vomiting. She does admit to some lower abdominal discomfort. No vaginal bleeding or discharge. She states that she is not currently on her menstrual cycle. She denies any other acute complaints at this time. - Related Data Home Medications Medication Instructions Recorded Confirmed No Known Home Medications 07/01/20 09/16/20 Allergies Allergy/AdvReac Type Severity Reaction Status Date / Time seafood Allergy Unknown Uncoded 11/13/20 17:37 Review of Systems ROS Statement: Those systems with pertinent positive or pertinent negative responses have been documented in the HPI. ROS Other: All systems not noted in ROS Statement are negative. Past Medical History Additional Past Medical History / Comment(s): neuro cardiogenic syncope. Obstetric history: This patient's first and she's had care with me since first trimester. Blood type is O+, antibodies negative, rubella immune, hepatitis B negative, GBS positive, HIV nonreactive, RPR nonreactive. History of Any Multi-Drug Resistant Organisms: None Reported Past Surgical History: No Surgical Hx Reported Past Psychological History: No Psychological Hx Reported Smoking Status: Vaper Past Alcohol Use History: Occasional Past Drug Use History: None Reported - Past Family History Mother Family Medical History: No Reported History General Exam - General Exam Comments Initial Comments: Constitutional: Awake alert Appears comfortable Head: Normocephalic atraumatic Eyes: no conjunctival injection No scleral icterus EOMI Neck: No JVD Supple Heart: Regular rate rhythm normal S1-S2 no murmurs Lungs: Clear to auscultation bilaterally No wheezing No rales Abdomen: Soft nondistended nontender Extremities: Non edematous DP pulses intact Radial pulses intact, there is some tenderness to the paraspinal musculature bilaterally in the lumbar area no midline tenderness Neuro: A&Ox3 5 out of 5 strength with plantar flexion, dorsiflexion bilaterally, 5 out of 5 strength with knee extension and flexion bilaterally 5 out of 5 strength with hip flexion bilaterally, sensation intact to light touch in all dermatomes and lower Chev[place], 2 out of 4 patellar reflexes No focal neurologic deficits Psych: Appropriate mood and affect Limitations: no limitations Course Vital Signs 11/13/20 11/13/20 17:34 20:40 Temperature 97.9 F 98.1 F Pulse Rate 75 72 Respiratory 18 16 Rate Blood Pressure 116/70 118/68 O2 Sat by Pulse 100 99 Oximetry Medical Decision Making - Medical Decision Making Is a 25-year-old female who presents emergency department for lower back pain. The patient had a normal neurologic examination in her lower [place]. She had no red flag symptoms including IV drug use, fever, history of cancer, recent trauma. The patient's symptoms were paraspinal and not midline. Urinalysis reveals hematuria however no evidence for infection. The rest of her blood work was unremarkable. I did obtain a kidney ultrasound to evaluate for hydronephro sis and this was unremarkable. The patient was eager to go home and told to follow up closely with her primary doctor for further evaluation of the hematuria. She can return emergency department if she has any worsening or changing symptoms. All questions were answered. - Lab Data Result diagrams: 11/13/20 18:56 11/13/20 18:56 Lab Results 11/13/20 11/13/20 11/13/20 Range/Units 18:04 18:04 18:56 WBC 11.4 H (3.8-10.6) k/uL RBC 3.98 (3.80-5.40) m/uL Hgb 12.1 (11.4-16.0) gm/dL Hct 34.9 (34.0-46.0) % MCV 87.7 (80.0-100.0) fL MCH 30.3 (25.0-35.0) pg MCHC 34.5 (31.0-37.0) g/dL RDW 14.2 (11.5-15.5) % Plt Count 223 (150-450) k/uL MPV 7.7 Neutrophils % 72 % Lymphocytes % 22 % Monocytes % 4 % Eosinophils % 1 % Basophils % 1 % Neutrophils # 8.1 H (1.3-7.7) k/uL Lymphocytes # 2.5 (1.0-4.8) k/uL Monocytes # 0.4 (0-1.0) k/uL Eosinophils # 0.1 (0-0.7) k/uL Basophils # 0.1 (0-0.2) k/uL Sodium (137-145) mmol/L Potassium (3.5-5.1) mmol/L Chloride (98-107) mmol/L Carbon Dioxide (22-30) mmol/L Anion Gap mmol/L BUN (7-17) mg/dL Creatinine (0.52-1.04) mg/dL Est GFR (CKD-EPI)AfAm (>60 ml/min/1.73 sqM) Est GFR (CKD-EPI)NonAf (>60 ml/min/1.73 sqM) Glucose (74-99) mg/dL Calcium (8.4-10.2) mg/dL Total Bilirubin (0.2-1.3) mg/dL AST (14-36) U/L ALT (4-34) U/L Alkaline Phosphatase (38-126) U/L Total Protein (6.3-8.2) g/dL Albumin (3.5-5.0) g/dL Urine Color Yellow Urine Appearance Clear (Clear) Urine pH 6.5 (5.0-8.0) Ur Specific Berry 1.020 (1.001-1.035) Urine Protein Negative (Negative) Urine Glucose (UA) Negative (Negative) Urine Ketones Negative (Negative) Urine Blood Moderate H (Negative) Urine Nitrite Negative (Negative) Urine Bilirubin Negative (Negative) Urine Urobilinogen <2.0 (<2.0) mg/dL Ur Leukocyte Esterase Negative (Negative) Urine RBC 22 H (0-5) /hpf Urine WBC 1 (0-5) /hpf Ur Squamous Epith Cells 3 (0-4) /hpf Hyaline Casts 1 (0-2) /lpf Urine Mucus Few H (None) /hpf Urine HCG, Qual Not Detected (Not Detectd) 06/13/21 Range/Units 18:56 WBC (3.8-10.6) k/uL RBC (3.80-5.40) m/uL Hgb (11.4-16.0) gm/dL Hct (34.0-46.0) % MCV (80.0-100.0) fL MCH (25.0-35.0) pg MCHC (31.0-37.0) g/dL RDW (11.5-15.5) % Plt Count (150-450) k/uL MPV Neutrophils % % Lymphocytes % % Monocytes % % Eosinophils % % Basophils % % Neutrophils # (1.3-7.7) k/uL Lymphocytes # (1.0-4.8) k/uL Monocytes # (0-1.0) k/uL Eosinophils # (0-0.7) k/uL Basophils # (0-0.2) k/uL Sodium 137 (137-145) mmol/L Potassium 3.6 (3.5-5.1) mmol/L Chloride 107 (98-107) mmol/L Carbon Dioxide 23 (22-30) mmol/L Anion Gap 7 mmol/L BUN 12 (7-17) mg/dL Creatinine 0.55 (0.52-1.04) mg/dL Est GFR (CKD-EPI)AfAm >90 (>60 ml/min/1.73 sqM) Est GFR (CKD-EPI)NonAf >90 (>60 ml/min/1.73 sqM) Glucose 98 (74-99) mg/dL Calcium 9.4 (8.4-10.2) mg/dL Total Bilirubin 1.7 H (0.2-1.3) mg/dL AST 23 (14-36) U/L ALT 16 (4-34) U/L Alkaline Phosphatase 52 (38-126) U/L Total Protein 6.6 (6.3-8.2) g/dL Albumin 4.0 (3.5-5.0) g/dL Urine Color Urine Appearance (Clear) Urine pH (5.0-8.0) Ur Specific Berry (1.001-1.035) Urine Protein (Negative) Urine Glucose (UA) (Negative) Urine Ketones (Negative) Urine Blood (Negative) Urine Nitrite (Negative) Urine Bilirubin (Negative) Urine Urobilinogen (<2.0) mg/dL Ur Leukocyte Esterase (Negative) Urine RBC (0-5) /hpf Urine WBC (0-5) /hpf Ur Squamous Epith Cells (0-4) /hpf Hyaline Casts (0-2) /lpf Urine Mucus (None) /hpf Urine HCG, Qual (Not Detectd) Disposition Clinical Impression: Hematuria Disposition: HOME SELF-CARE Condition: Stable Instructions (If sedation given, give patient instructions): Hematuria (ED) Is patient prescribed a controlled substance at d/c from ED?: No Referrals: Moise Dave MD [Primary Care Provider] - 1-2 days
--- NOTE | 2020-11-13 20:08 | US ---
EXAMINATION TYPE: US kidneys/renal and bladder DATE OF EXAM: 11/13/2020 COMPARISON: NONE CLINICAL HISTORY: b/l low back pain, hematuria. EXAM MEASUREMENTS: Right Kidney: 10.1 x 4.1 x 4.9 cm Left Kidney: 10.4 x 5.2 x 5.1 cm Right Kidney: No hydronephrosis or masses seen Left Kidney: No hydronephrosis or masses seen Bladder: wnl IMPRESSION: Normal kidneys. No evidence of renal mass or obstruction.
[2020-11-13 20:41] VITALS: BP 118/68; PULSE 72; RESP 16; TEMP 98.1
== END 2020-11-13 20:40 | disposition home or self-care (01) ==
LOC: EC 17:31
DX: R31.9 Hematuria, unspecified (principal); M54.5 Low back pain; R10.30 Lower abdominal pain, unspecified; R20.2 Paresthesia of skin; F17.290 Nicotine dependence, other tobacco product, uncomplicated; Z87.440 Personal history of urinary (tract) infections
CPT/HCPCS: 36415; 80053; 85025; 81001; 81025; 76770; 99284; 96374; J1885

== ENCOUNTER 2021-02-06 15:00 | Emergency (ER) | payer OTHER ==
[2021-02-06 15:19] VITALS: TEMP 99.2
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
[2021-02-06 17:31] VITALS: BP 120/74; PULSE 68; RESP 16
== END 2021-02-06 17:32 | disposition home or self-care (01) ==
LOC: EC 15:00
DX: S02.2XXA Fracture of nasal bones, initial encounter for closed fracture (principal); F17.290 Nicotine dependence, other tobacco product, uncomplicated; Y04.0XXA Assault by unarmed brawl or fight, initial encounter
CPT/HCPCS: 70450; 70486; 72125; 81025; 99284

== ENCOUNTER 2021-03-17 11:11 | Emergency (ER) | payer OTHER ==
[2021-03-17 11:35] VITALS: BP 102/66; PULSE 84; RESP 18; TEMP 98.5
[2021-03-17] MEDS ORDERED: IBUPROFEN 600 MG TAB PO STA (12:33)
[2021-03-17] MEDS ORDERED: ACETAMINOPHEN TAB 500 MG TAB PO STA (12:33)
[2021-03-17] MEDS ORDERED: predniSONE 20 MG TAB PO STA (12:34)
[2021-03-17] MEDS ORDERED: AMOXICILLIN 500 MG CAP PO STA (12:34)
--- NOTE | 2021-03-17 12:37 | ED ---
General Adult HPI - General Chief complaint: ENT Stated complaint: Sore Throat Time Seen by Provider: 03/17/21 11:35 Source: patient, RN notes reviewed, old records reviewed Mode of arrival: ambulatory Limitations: no limitations - History of Present Illness Initial comments: This is a 25-year-old female presents emergency Department complaining of a sore throat 2 days. Patient states she feels hot but hasn't taken her temperature. Patient states today she started noticing some white exudate on the right tonsil. She states she still is able swallow she's having no difficulty breathing. Patient denies any cough patient denies any shortness of breath. Patient denies any ear pain. Patient denies any other symptoms at this time. - Related Data Previous Rx's Medication Instructions Recorded Amoxicillin 500 mg PO Q8H #30 cap 03/17/21 predniSONE [Deltasone] 20 mg PO DAILY #3 tab 03/17/21 Allergies Allergy/AdvReac Type Severity Reaction Status Date / Time seafood Allergy Unknown Uncoded 03/17/21 11:35 Review of Systems ROS Statement: Those systems with pertinent positive or pertinent negative responses have been documented in the HPI. ROS Other: All systems not noted in ROS Statement are negative. Past Medical History Additional Past Medical History / Comment(s): neuro cardiogenic syncope. Obstetric history: This patient's first and she's had care with me since first trimester. Blood type is O+, antibodies negative, rubella immune, hepatitis B negative, GBS positive, HIV nonreactive, RPR nonreactive. History of Any Multi-Drug Resistant Organisms: None Reported Past Surgical History: No Surgical Hx Reported Additional Past Surgical History / Comment(s): nose surgery Past Psychological History: No Psychological Hx Reported Smoking Status: Vaper Past Alcohol Use History: Occasional Past Drug Use History: None Reported - Past Family History Mother Family Medical History: No Reported History General Exam - General Exam Comments Initial Comments: GENERAL: Patient is well-developed and well-nourished. Patient is nontoxic and well- hydrated and is in mild distress. ENT: Neck is soft and supple. No significant lymphadenopathy is noted. Patient's oropharynx is erythematous tonsils are both slightly swollen right one has more swelling than the left and exudate. Neck has full range of motion without eliciting any pain. EYES: The sclera were anicteric and conjunctiva were pink and moist. Extraocular movements were intact and pupils were equal round and reactive to light. Eyelids were unremarkable. PULMONARY: Unlabored respirations. Good breath sounds bilaterally. No audible rales rhonchi or wheezing was noted. CARDIOVASCULAR: There is a regular rate and rhythm without any murmurs gallops or rubs. ABDOMEN: Soft and nontender with normal bowel sounds. SKIN: Skin is clear with no lesions or rashes and otherwise unremarkable. NEUROLOGIC: Patient is alert and oriented x3. Cranial nerves II through XII are grossly intact. Motor and sensory are also intact. Normal speech, volume and content. Symmetrical smile. MUSCULOSKELETAL: Normal extremities with adequate strength and full range of motion. No lower extremity swelling or edema. No calf tenderness. LYMPHATICS: Patient has no posterior lymphadenopathy she has slight right-sided lymphadenopathy. PSYCHIATRIC: Normal psychiatric evaluation. Limitations: no limitations Course Vital Signs 03/17/21 11:32 Temperature 98.5 F Pulse Rate 84 Respiratory 18 Rate Blood Pressure 102/66 O2 Sat by Pulse 98 Oximetry Disposition Clinical Impression: Strep pharyngitis Disposition: HOME SELF-CARE Instructions (If sedation given, give patient instructions): Strep Throat (ED) Prescriptions: Amoxicillin 500 mg PO Q8H #30 cap predniSONE [Deltasone] 20 mg PO DAILY #3 tab Is patient prescribed a controlled substance at d/c from ED?: No Referrals: Moise Dave MD [Primary Care Provider] - 1-2 days Time of Disposition: 12:36
== END 2021-03-17 12:55 | disposition home or self-care (01) ==
LOC: EC 11:11
DX: J02.0 Streptococcal pharyngitis (principal); F17.290 Nicotine dependence, other tobacco product, uncomplicated
CPT/HCPCS: 99282; J7512

== ENCOUNTER → 2022-05-21 | Outpatient (CLI) | payer OTHER ==
--- NOTE | 2022-05-21 09:56 | US ---
EXAMINATION TYPE: Transabdominal DATE OF EXAM: 05/21/2022 9:27 AM COMPARISON: NONE CLINICAL HISTORY: Z36.89 ENCOUNTER FOR OTHER SPECIFIED SCR. Confirm Dates. Positive beta hC G test. EXAM PERFORMED: Transabdominal (TA) EXAM MEASUREMENTS: GESTATIONAL AGE / DATING Physician Established: (10 weeks/5 days) EDC: 12/12/2022 Dates by LMP: (10 weeks/5 days) EDC: 12/12/2022 Dates by First Scan: No previous this is first scan Dates by Current Scan for: (10 weeks/4 days) EDC: 12/13/2022 MATERNAL ANATOMY Uterus: 10.8 x 8.7 x 9.3 cm Right Ovary: 2.4 x 1.8 x 2.3 cm Left Ovary: 4.4 x 2.3 x 3.2 cm Post CDS / Adnexa: wnl Presence of free fluid: No Presence of corpus luteal cyst: Left Ovary= 2.3 x 1.8 x 2.1 cm Presence of subchorionic bleed: No GESTATION / SURVEY CRL: 3.6 cm (10 weeks/4 days) MSD: wnl Yolk Sac (normal less than 6mm): 5mm Heart Rate: 162 bpm Rhythm: Normal IUP: Viable IUP Nuchal Translucency 10-14wks (normal less than 3mm): 1 mm Age Appropriate Anatomy Limbs: Legs visualized Calvarium: Visualized Single, viable IUP Single live intrauterine gestation as gestational sac, yolk sac, and pole are seen. No free flu id. Both ovaries are seen with 2.3 cm isoechoic peripheral hypervascular lesion in the periphery left ova ry thought to reflect corpus luteal cyst. IMPRESSION: Single live intrauterine gestation is confirmed. Mean crown-rump length 3.6 cm correspond ing to 10 week 4 day old fetus
== END | disposition home or self-care (01) ==
LOC: RADUSWWP 09:13
PROVIDERS: ATTEND Obstetrics & Gynecology
DX: Z36.89 Encounter for other specified antenatal screening (principal); Z3A.10 10 weeks gestation of pregnancy
CPT/HCPCS: 76801

== ENCOUNTER 2022-10-10 21:30 | Outpatient (CLI) | payer OTHER ==
[2022-10-10 22:43] LABS: Appearance,Urine Clear (Clear); Bilirubin,Urine Negative (Negative); Blood,Urine Trace (Negative); Color,Urine Light Yellow; Glucose,Urine (UA) Negative (Negative); Ketones,Urine Negative (Negative); Leukocyte Esterase,Urine Trace (Negative); Mucus,Urine Rare /hpf; Nitrite,Urine Negative (Negative); Protein,Urine Negative (Negative); RBC,Urine <1 /hpf (0-5); Specific Gravity,Urine 1.019 (1.001-1.035); Squamous Epithelial Cell,Urine 2 /hpf (0-4); Urobilinogen,Urine <2.0 mg/dL (<2.0); WBC,Urine 2 /hpf (0-5)
[2022-10-10 23:30] VITALS: BP 124/60; PULSE 81; RESP 16; TEMP 97.5
--- NOTE | 2022-10-11 11:05 | P.MSEPDOC ---
Presenting Problems - Arrival Data Date of Arrival on Unit: 10/10/22 Time of Arrival on Unit: 21:30 Mode of Transport: Wheelchair - Complaint OB-Reason for Admission/Chief Complaint: Acute Nausea/Vomiting Comment: Pt presents to triage with c/o left upper rib pain x 2 days. Pt states "it. feels like his foot is right there pressing against my ribs", pt rating pain 7/10 and. describes pain as soreness. Pt also complaints of nausea and dry heaving x 3 hours,. states she is not nauseous at this time. Pt also complaining of "lightning crotch" pain. intermittently and states she is generally uncomfortable. Medical History - Information : 2 Para: 1 Term: 1 : 0 Abortions: Spontaneous or Elective: 0 Number of Living Children: 1 - Gestational Age Gestational Age by LIAM (wks/days): 31 Weeks and 0 Days Review of Systems - Review of Systems Constitutional: No problems Breast: No problems ENT: No problems Cardiovascular: No problems Respiratory: No problems Gastrointestinal: No problems Genitourinary: No problems Musculoskeletal: No problems Neurological: No problems Skin: No problems Vital Signs - Temperature Temperature: 97.5 F Temperature Source: Temporal Artery Scan - Pulse Right Pulse Oximetery Pulse Rate: 81 Pulse Assessment Method: Pulse Oximetry - Respirations Respiratory Rate: 16 Oxygen Delivery Method: Room Air O2 Sat by Pulse Oximetry: 99 - Blood Pressure Right Arm Blood Pressure: 124/60 Blood Pressure Mean: 81 Medical Screen Scoring - Cervical Exam Dilation (cm): 0 Effacement (%): 0 Membranes: Intact - Uterine Contractions Intensity: Absent Resting: Soft to palpation - Assessment - Baby A Baseline FHR: 130 Heart Rate - NICHD Category: Category I (Normal) NST: Reactive Physician Notification - Physician Notified Physician Notified Date: 10/10/22 Physician Notified Time: 22:10 Physician: Steff Moss Order Received: Yes - Notification Comment Comment: Dr. Moss called back, report given on maternal status, GA, G/P, pt complaints,. vitals, reactive NST, CAT1 FHT, 2 contractions traced. Orders given to check pt cervix,. collect and send Urinalysis. Maternal Triage Index - Maternal Triage Index Presenting for scheduled procedure w/no complaint: No - Stat/Priority 1 Stat Priority 1: No - Urgent/Priority 2 Urgent Priority 2: No - Prompt/Priority 3 Prompt Priority 3: No - Non-Urgent/Priority 4 Non-Urgent Priority 4: Yes Criteria Met for Priority 4: Pt presents to triage with c/o left upper rib pain x 2 days. Pt states "it. feels like his foot is right there pressing against my ribs", pt rating pain 7/10 and. describes pain as soreness. Pt also complaints of nausea and dry heaving x 3 hours,. states she is not nauseous at this time. Pt also complaining of "lightning crotch" pain. intermittently and states she is generally uncomfortable. Disposition - Disposition OB Disposition: Discharge to home, Written follow up instructions reviewed Discharge Date: 10/10/22 Discharge Time: 23:07 I agree with the RN Medical Screening Exam: Yes Case reviewed; plan agreed upon as documented in EMR&OBIX.: Yes Diagnosis: RELATED CONDITIONS, UNSPECIFIED, THIRD TRIMESTER
== END 2022-10-10 23:07 | disposition home or self-care (01) ==
LOC: FBPOP 21:30
PROVIDERS: ATTEND Obstetrics & Gynecology
DX: O26.893 Other specified pregnancy related conditions, third trimester (principal); Z3A.31 31 weeks gestation of pregnancy; Z91.013 Allergy to seafood
CPT/HCPCS: 59025; 81001; G0463; 99213

== ENCOUNTER 2022-11-16 19:20 | Outpatient (CLI) | payer OTHER ==
[2022-11-16 21:30] VITALS: BP 118/60; PULSE 75; RESP 16; TEMP 97
--- NOTE | 2022-12-02 11:47 | P.MSEPDOC ---
Presenting Problems - Arrival Data Date of Arrival on Unit: 11/16/22 Time of Arrival on Unit: 19:20 Mode of Transport: Wheelchair - Complaint OB-Reason for Admission/Chief Complaint: Possible Onset of Labor Comment: Patient of Dr. Beth , LIAM 12/12/22 [place] 36.2 presents to triage with c/o. vick 3 minutes apart, stops and starts again. Denies leakage of fluid and. bleeding. Still feeling baby move. Medical History - Information : 2 Para: 1 Term: 1 : 0 Abortions: Spontaneous or Elective: 0 Number of Living Children: 1 - Gestational Age Gestational Age by LIAM (wks/days): 36 Weeks and 2 Days Review of Systems - Review of Systems Constitutional: No problems Breast: No problems ENT: No problems Cardiovascular: No problems Respiratory: No problems Gastrointestinal: No problems Genitourinary: No problems Musculoskeletal: No problems Neurological: No problems Skin: No problems Vital Signs - Temperature Temperature: 97 F Temperature Source: Temporal Artery Scan - Pulse Pulse Oximetery Pulse Rate: 75 Pulse Assessment Method: Pulse Oximetry - Respirations Respiratory Rate: 16 Oxygen Delivery Method: Room Air O2 Sat by Pulse Oximetry: 98 - Blood Pressure Right Arm Blood Pressure: 118/60 Blood Pressure Mean: 79 Blood Pressure Source: Automatic Cuff Medical Screen Scoring - Cervical Exam Dilation (cm): 1 Effacement (%): 0 Membranes: Intact - Uterine Contractions Frequency From (mins): 1 Frequency To (mins): 10 Intensity: Mild Resting: Soft to palpation - Assessment - Baby A Baseline FHR: 125 Heart Rate - NICHD Category: Category I (Normal) NST: Reactive Physician Notification - Physician Notified Physician Notified Date: 11/16/22 Physician Notified Time: 20:47 Physician: Dina Beth - Notification Comment Comment: Called and spoke with Dr. Beth. Triage patient sees her in the office. ,. LIAM 12/12/2022, [place] 36.2. Came in with c/o contractions 3 minutes apart. Cervical exam. 1/thick. Amnisure negative. Category 1 FHR. vitals good. Orders to send her home with. discharge instructions. Maternal Triage Index - Maternal Triage Index Presenting for scheduled procedure w/no complaint: No - Stat/Priority 1 Stat Priority 1: No - Urgent/Priority 2 Urgent Priority 2: No - Prompt/Priority 3 Prompt Priority 3: Yes Criteria Met for Priority 3: >34 weeks with irregular contractions Disposition - Disposition OB Disposition: Discharge to home Discharge Date: 11/16/22 Discharge Time: 20:55 I agree with the RN Medical Screening Exam: Yes Case reviewed; plan agreed upon as documented in EMR&OBIX.: Yes Diagnosis: PRIMARY INADEQUATE CONTRACTIONS
== END 2022-11-16 20:55 | disposition home or self-care (01) ==
LOC: FBPOP 19:20
PROVIDERS: ATTEND Obstetrics & Gynecology
DX: O26.893 Other specified pregnancy related conditions, third trimester (principal); O62.0 Primary inadequate contractions; Z3A.36 36 weeks gestation of pregnancy
CPT/HCPCS: 59025; 84112; G0463; 99213

== ENCOUNTER 2022-12-17 14:29 | Outpatient (CLI) | payer OTHER ==
[2022-12-17 16:14] VITALS: BP 137/60; PULSE 93; RESP 14; TEMP 97.2
--- NOTE | 2022-12-18 08:02 | P.MSEPDOC ---
Presenting Problems - Arrival Data Date of Arrival on Unit: 12/17/22 Time of Arrival on Unit: 14:33 Mode of Transport: Ambulatory - Complaint OB-Reason for Admission/Chief Complaint: Rule Out SROM Medical History - Information : 2 Para: 1 Term: 1 : 0 Abortions: Spontaneous or Elective: 0 Number of Living Children: 1 - Gestational Age Gestational Age by LIAM (wks/days): 40 Weeks and 0 Days Review of Systems - Review of Systems Constitutional: No problems Breast: No problems ENT: No problems Cardiovascular: No problems Respiratory: No problems Gastrointestinal: No problems Genitourinary: No problems Musculoskeletal: No problems Neurological: No problems Skin: No problems Vital Signs - Temperature Temperature: 97.2 F Temperature Source: Temporal Artery Scan - Pulse Right Brachial Pulse Rate: 93 Pulse Assessment Method: Automatic Cuff - Respirations Respiratory Rate: 14 Oxygen Delivery Method: Room Air - Blood Pressure Right Arm Blood Pressure: 137/60 Blood Pressure Mean: 85 Blood Pressure Source: Automatic Cuff Medical Screen Scoring - Cervical Exam Dilation (cm): 1.5 Effacement (%): 60 Station: -2 Membranes: Intact - Assessment - Baby A Baseline FHR: 130 Heart Rate - NICHD Category: Category I (Normal) NST: Reactive Physician Notification - Physician Notified Physician Notified Date: 12/17/22 Physician Notified Time: 15:18 Physician: Dakota Narayan Order Received: Yes - Notification Comment Comment: d/c home Maternal Triage Index - Maternal Triage Index Presenting for scheduled procedure w/no complaint: No - Stat/Priority 1 Stat Priority 1: No - Urgent/Priority 2 Urgent Priority 2: No - Prompt/Priority 3 Prompt Priority 3: No - Non-Urgent/Priority 4 Non-Urgent Priority 4: Yes Criteria Met for Priority 4: contractions Disposition - Disposition OB Disposition: Discharge to home I agree with the RN Medical Screening Exam: Yes Case reviewed; plan agreed upon as documented in EMR&OBIX.: Yes Diagnosis: FALSE LABOR AT OR AFTER 37 COMPLETED WEEKS OF GESTATION
== END 2022-12-17 16:17 | disposition home or self-care (01) ==
LOC: FBPOP 14:29
PROVIDERS: ATTEND Obstetrics & Gynecology
DX: O47.1 False labor at or after 37 completed weeks of gestation (principal); Z3A.40 40 weeks gestation of pregnancy
CPT/HCPCS: 59025; 84112; G0463; 99213

== ENCOUNTER 2022-12-18 13:34 | Outpatient (CLI) | payer OTHER ==
[2022-12-18 18:20] VITALS: BP 130/60; PULSE 80; RESP 16; TEMP 97.2
--- NOTE | 2022-12-18 18:35 | P.MSEPDOC ---
Presenting Problems - Arrival Data Date of Arrival on Unit: 12/18/22 Time of Arrival on Unit: 13:30 Mode of Transport: Ambulatory - Complaint OB-Reason for Admission/Chief Complaint: Possible Onset of Labor Comment: contx throu night getting stronger and stronger. dilated 2 cm, last night in triage. same today in triage. Medical History - Information : 2 Para: 1 Term: 1 : 0 Abortions: Spontaneous or Elective: 0 Number of Living Children: 1 - Gestational Age Gestational Age by LIAM (wks/days): 40 Weeks and 1 Days Review of Systems - Review of Systems Constitutional: No problems Breast: No problems ENT: No problems Cardiovascular: No problems Respiratory: No problems Gastrointestinal: No problems Genitourinary: No problems Musculoskeletal: No problems Neurological: No problems Skin: No problems Vital Signs - Temperature Temperature: 97.2 F Temperature Source: Temporal Artery Scan - Pulse Apical Pulse Rate: 80 Pulse Assessment Method: Automatic Cuff - Respirations Respiratory Rate: 16 Oxygen Delivery Method: Room Air O2 Sat by Pulse Oximetry: 98 - Blood Pressure Right Arm Blood Pressure: 130/60 Blood Pressure Mean: 83 Blood Pressure Source: Automatic Cuff Medical Screen Scoring - Cervical Exam Dilation (cm): 2 Effacement (%): 70 Station: -2 Membranes: Intact - Uterine Contractions Frequency From (mins): 2 Frequency To (mins): 10 Duration From (seconds): 30 Duration To (seconds): 60 Intensity: Moderate Resting: Soft to palpation - Assessment - Baby A Baseline FHR: 14 Heart Rate - NICHD Category: Category I (Normal) NST: Reactive Physician Notification - Physician Notified Physician Notified Date: 12/18/22 Physician Notified Time: 17:00 Physician: Steff Moss Order Received: Yes (home with instructions) Maternal Triage Index - Non-Urgent/Priority 4 Non-Urgent Priority 4: Yes Criteria Met for Priority 4: pt here several hours with only slight change to cervix. 2cm to 2.5 cm , still 70 % effaced and -2 station. no srom or bleeding. contx same. reactive nst Disposition - Disposition OB Disposition: Discharge to home, Written follow up instructions reviewed Discharge Date: 12/18/22 Discharge Time: 17:10 I agree with the RN Medical Screening Exam: Yes Case reviewed; plan agreed upon as documented in EMR&OBIX.: Yes Diagnosis: FALSE LABOR AT OR AFTER 37 COMPLETED WEEKS OF GESTATION
== END 2022-12-18 17:10 | disposition home or self-care (01) ==
LOC: FBPOP 13:34
PROVIDERS: ATTEND Obstetrics & Gynecology
DX: O47.1 False labor at or after 37 completed weeks of gestation (principal); Z3A.40 40 weeks gestation of pregnancy
CPT/HCPCS: 59025; G0463; 99213